=== PATIENT | male | born 1940 | race African-American/Black ===

== ENCOUNTER 2018-02-02 10:12 | Observation (INO) | payer MEDICARE ==
[2018-02-02 11:01] LABS: Bilirubin Negative (Negative); Blood, Urine Negative (Negative); Glucose, Urine (Dipstick) Negative (Negative); Leukocyte Negative (Negative); Nitrite Negative (Negative); Protein, Urine (Dipstick) Negative (Neg-Trace); Urobilinogen 0.2 mg/dL (0.2-1.0); pH, Urine 7.5 (5.0-9.0)
[2018-02-02 11:03] LABS: Clarity Clear (Clear)
[2018-02-02 11:34] LABS: #Basophils 0.1 thou/uL (0.0-0.2); #Eosinphils 0.1 thou/uL (0.0-0.7); #Lymphocytes 1.9 thou/uL (1.20-3.40); #Monocytes 0.7 thou/uL (0.11-0.59); #Neutrophils 10.4 thou/uL (1.40-6.50); %Basophils 0.4 % (0.0-1.0); %Eosinophils 0.6 % (0.0-10.0); %Lymphocytes 14.3 % (21.0-51.0); %Monocytes 5.5 % (0.0-10.0); %Neutrophils 79.2 % (42.0-75.0); Hemoglobin 9.3 g/dL (14.0-18.0); Mean Corpuscular HGB CONC 31.2 g/dL (32.0-36.0); Mean Corpuscular Hemoglobin 24.7 pg (27.0-31.0); Mean Corpuscular Volume 79.1 fL (78.0-98.0); Platelet Count 786 thou/uL (130-400); RBC Distribution Width 17.2 % (11.5-14.5); Red Blood Cell (RBC) Count 3.77 mill/uL (4.70-6.10); White Blood Cell (WBC) Count 13.1 thou/uL (4.8-10.8)
[2018-02-02 11:41] LABS: INR-International Normal Ratio 1.2; PTT 34.1 SEC (22.9-36.1)
[2018-02-02 11:57] LABS: ALT (SGPT) 36 U/L (8-55); AST (SGOT) 27 U/L (5-34); Albumin 4.2 g/dL (3.4-4.8); Alkaline Phosphatase 223 U/L (40-150); Anion Gap 13 mmol/L (10-20); BUN (Urea Nitrogen) 25 mg/dL (8.4-25.7); Bilirubin, Total 0.3 mg/dL (0.2-1.2); Calc. Creatinine Clearance 0 mL/min (70-130); Carbon Dioxide 27 mmol/L (23-31); Chloride 101 mmol/L (98-107); Estimated GFR-MDRD 69; Glucose 118 mg/dL (83-110); Potassium 4.4 mmol/L (3.5-5.1); Protein, Total 8.2 g/dL (5.8-8.1); Sodium 137 mmol/L (136-145)
[2018-02-02 12:03] LABS: CKMB 0.7 ng/mL (0-6.6); Troponin I Less than 0.010 ng/mL (< 0.028)
[2018-02-02] MEDS ORDERED: Ondansetron PF 4 MG/2 ML Vial ONE (12:16)
[2018-02-02] MEDS ORDERED: Morphine 2 MG/ML SYRINGE ONE (12:17)
--- NOTE | 2018-02-02 13:41 | RAD ---
PORTABLE CHEST 1 VIEW: Date: 02/02/18 Time: 1059 hours HISTORY: Abdominal pain with bleeding ulcers. FINDINGS: Comparison made with exam of 06/17/06. The heart size is borderline. The aorta is tortuous. The lungs are expanded without focal areas of co nsolidation, pneumothorax, alisha pulmonary edema, or pleural effusions. IMPRESSION: No radiographic evidence of acute cardiopulmonary process. POS: [facility]
[2018-02-02] MEDS ORDERED: Pantoprazole 40 MG VIAL ONE (14:57)
[2018-02-02] MEDS ORDERED: Ondansetron PF 4 MG/2 ML Vial IVP PRN (16:28)
[2018-02-02] MEDS ORDERED: Ondansetron ODT 4 MG TAB SL PRN (16:28)
[2018-02-02] MEDS ORDERED: Acetaminophen 325 MG TAB PO PRN ×2 (16:28→17:20)
[2018-02-02] MEDS ORDERED: Sodium Chloride 0.9% 1,000 ML IV SCH (16:28)
[2018-02-02] MEDS ORDERED: Guaifenesin DM 100-10/5 ML UDCUP PO PRN (17:20)
[2018-02-02] MEDS: Sodium Chloride 0.9% 1,000 ML IV SCH (19:00)
[2018-02-03 04:39] LABS: #Basophils 0.1 thou/uL (0.0-0.2); #Eosinphils 0.2 thou/uL (0.0-0.7); #Lymphocytes 1.9 thou/uL (1.20-3.40); #Monocytes 0.7 thou/uL (0.11-0.59); #Neutrophils 7.9 thou/uL (1.40-6.50); %Basophils 0.6 % (0.0-1.0); %Eosinophils 1.8 % (0.0-10.0); %Lymphocytes 17.4 % (21.0-51.0); %Monocytes 6.8 % (0.0-10.0); %Neutrophils 73.4 % (42.0-75.0); Hemoglobin 7.2 g/dL (14.0-18.0); Mean Corpuscular HGB CONC 30.8 g/dL (32.0-36.0); Mean Corpuscular Hemoglobin 24.5 pg (27.0-31.0); Mean Corpuscular Volume 79.4 fL (78.0-98.0); Mean Platelet Volume 6.6 fL (7.4-10.4); Platelet Count 594 thou/uL (130-400); RBC Distribution Width 17.1 % (11.5-14.5); Red Blood Cell (RBC) Count 2.94 mill/uL (4.70-6.10); White Blood Cell (WBC) Count 10.8 thou/uL (4.8-10.8)
[2018-02-03 04:47] LABS: Anion Gap 12 mmol/L (10-20); BUN (Urea Nitrogen) 19 mg/dL (8.4-25.7); Calc. Creatinine Clearance 58 mL/min (70-130); Calcium 8.9 mg/dL (7.8-10.44); Carbon Dioxide 26 mmol/L (23-31); Chloride 104 mmol/L (98-107); Estimated GFR-MDRD 71; Glucose 106 mg/dL (83-110); Potassium 4.7 mmol/L (3.5-5.1); Sodium 137 mmol/L (136-145)
[2018-02-03 05:01] VITALS: BMI 26.9
--- NOTE | 2018-02-03 07:40 | CON ---
GI INPATIENT CONSULTATION NOTE DATE OF SERVICE: 02/02/2018 REQUESTING PHYSICIAN: Dr. Montiel. REASON FOR CONSULTATION: Hematemesis. HISTORY OF PRESENT ILLNESS: Govind Zamarripa is a very pleasant 77-year-old -[place] gentleman . He was recently seen in the outpatient setting by my colleague, Dr. Ghanshyam Marquez in consultation f or iron deficiency anemia and some dysphagia symptoms. Dr. Marquez had planned on outpatient endoscopy . Mr. Zamarripa actually ended up at the [facility] and was briefly hospitalized for hemateme sis just within the past week. He underwent EGD on 01/26/2018 and this demonstrated a 6 x 2 cm ulcer extending from the gastric antrum to the gastric body along the greater curvature of the stomach. T his had an appearance suspicious for possible neoplasm. He had a CT scan that same date of the abdom en and pelvis and this demonstrated innumerable liver lesions consistent with metastatic disease as w ell as regional lymphadenopathy including enlarged lymph nodes in the gastrohepatic, peripancreatic, and periaortic lymph nodes. The patient was discharged from the hospital while pathology was pending . Pathology did come back consistent with invasive poorly differentiated carcinoma. Evidently, [facility] would not accept the patient's insurance and the patient had not lined up any ot her oncology evaluation yet. Then, earlier today, he had another episode of small volume hematemesis . He says this was quite a small amount, but it was bright red blood. He is not having a lot of eduardo sea or abdominal pain, though he has remained hemodynamically stable. He presented to the emergency department again. His hemoglobin was found to be 9.3 and I note this is essentially stable from his recent hospitalization, in which it was 8.7. He has no other complaints at this time. PAST MEDICAL HISTORY: Iron deficiency anemia, hyperlipidemia, kidney stones status post lithotripsy, appendectomy, BPH, gastric carcinoma, presenting as malignant ulcer, metastatic to the liver, diagno sed within the past week at [facility]. ALLERGIES: No known drug allergies. OUTPATIENT MEDICATIONS: Naproxen b.i.d. FAMILY HISTORY: Negative for known gastrointestinal malignancy. SOCIAL HISTORY: No smoking, alcohol, or drug use. PHYSICAL EXAMINATION: VITAL SIGNS: Temperature 98.3, pulse 63, blood pressure 155/72, 100% oxygen saturation on room air. GENERAL: A 77-year-old -[place] man sitting up in bed comfortably in no distress. MENTAL: Alert and fully oriented, pleasant, conversational. SKIN: No jaundice, no rash visible or palpable. EYES: No scleral icterus. Extraocular movements intact. ENT: Mucous membranes moist, no oral lesions. LYMPH: No submandibular or supraclavicular lymphadenopathy. THYROID: Nontender to palpation. HEART: Regular rate and rhythm. LUNGS: Clear to auscultation bilaterally. ABDOMEN: Flat, bowel sounds present, soft, some tenderness to palpation in the epigastrium, but no g uarding or rebound tenderness. EXTREMITIES: No peripheral edema. VESSELS: Radial pulses 2+ bilaterally. NEUROLOGICAL: Cranial nerves II-XII intact bilaterally. No focal deficits. LABORATORY STUDIES: Hemoglobin 9.3, WBC 13.1, platelets 786. INR 1.2. Sodium 137, potassium 4.4, B UN 25, creatinine 1.23, alkaline phosphatase 223, AST 27, ALT 36, total bilirubin 0.3. Troponin nega tive. Albumin 4.2. Urinalysis negative. IMAGING STUDIES: Chest x-ray here today shows no acute processes. CT of the abdomen and pelvis from 01/25/2018 was performed at [facility]. I reviewed that report. This demonstrated innumerable liver lesions consistent with metastatic disease as well as regional lymphadenopathy including enlar ged lymph nodes in the gastrohepatic, peripancreatic, and periaortic areas. ASSESSMENT AND PLAN: 1. Invasive gastric carcinoma, presenting as malignant gastric ulcer, metastatic to the liver, diagn osed last week at [facility]. 2. Hematemesis, recurrent, small volume. 3. Chronic anemia, stable. With regard to the repeat episode of hematemesis, this is undoubtedly co carlita from his malignant gastric ulcer. On the other hand, this appeared to have been small volume. His hemoglobin remains at baseline. Bleeding from gastric malignancy is notoriously difficult to ann marie l with endoscopically, and I really do not see any indication to repeat EGD at this time. I do think NSAIDs should be avoided and he does need to be on a daily proton pump inhibitor, but we will not pl an for any repeat EGD. 4. Hematemesis. 5. Chronic anemia, stable. The patient does need oncology evaluation. The patient's family is open to seeing an oncologist here, though they may want to go to [facility] as well. I see that Oncolog y consultation has already been requested. Thank you for the consultation. Please call back anytime with questions or concerns.
--- NOTE | 2018-02-03 07:40 | HP ---
REASON FOR ADMISSION: Hematemesis. HISTORY OF PRESENT ILLNESS: The patient gives history of vomiting blood yesterday around 20-30 mL and he had another episode this morning. Patient states he has had a complete workup done at [facility] including upper endoscopy and biopsies recently. He did not know the results. He currently has abdominal pain in the epigastric area. It is 5/10 in intensity with no radiation. No complaints of chest pain, palpitation, PND or orthopnea. No fever. The patient has had 1 episode of melena 2 weeks back. He walks by himself without any assistive devices and lives alone. PAST MEDICAL HISTORY: Just received records from [facility], where the patient had upper endoscopy done on the by Dr. Berhane Nino, which shows esophagus had Schatzki's ring. Stomach had a giant ulcer along the lesser curvature from body to the antrum with a midpoint at the incisura; it was 5 x 2 cm. Biopsies were taken from this area. The patient had a CT of the abdomen and pelvis done, which showed innumerable hypodense lesions throughout the liver suspicious for metastatic disease, largest lesion was 3.1 cm within the left hepatic lobe. The patient also had enlarged gastrohepatic and peripancreatic nodes with the largest one measuring 18 mm in short axis. There are also a few mildly enlarged periaortic nodes as well. Histopathology reveals poorly differentiated carcinoma of the stomach ulcer biopsy. HER2/doron stains were pending per the report, recurrent GI bleed due to malignancy, anemia due to malignancy described above, GERD, dyslipidemia, benign prostatic hypertrophy. CURRENT MEDICATIONS: Gabapentin 300 mg p.o. 3 times daily, Dryden p.r.n. for pain, omeprazole 20 mg p.o. daily, pravastatin 40 mg p.o. at bedtime, Flomax 0.4 p.o. daily, tizanidine p.r.n., type 2 diabetes mellitus, on diet control. PERSONAL HISTORY: Does not abuse alcohol or drugs. Quit smoking 30 years ago, smoked one pack a day for 3-4 years or so. FAMILY HISTORY: Mother at the age of 103 years. Father had cancer, which is unknown at the age of 70 years and is one of 13 siblings, 4 of his brothers had cancers, one had stomach cancer, a second brother had lung cancer and was a smoker. A third brother had liver metastasis from unknown cancer and the fourth brother had cancer, which is unknown to the patient. REVIEW OF SYSTEMS: The following complete review of systems was negative, unless otherwise mentioned in the HPI or below: Constitutional: Weight loss or gain, ability to conduct usual activities. Skin: Rash, itching. Eyes: Double vision, pain. ENT/Mouth: Nose bleeding, neck stiffness, pain, tenderness. Cardiovascular: Palpitations, dyspnea on exertion, orthopnea. Respiratory: Shortness of breath, wheezing, cough, hemoptysis, fever or night sweats. Gastrointestinal: Poor appetite, abdominal pain, heartburn, nausea, vomiting, constipation, or diarrhea. Genitourinary: Urgency, frequency, dysuria, nocturia. Musculoskeletal: Pain, swelling. Neurologic/Psychiatric: Anxiety, depression. Allergy/Immunologic: Skin rash, bleeding tendency. PHYSICAL EXAMINATION: GENERAL: The patient is a 77-year-old male who is currently not in any acute distress. VITAL SIGNS: Blood pressure 150/70, pulse 64 per minute, respiratory rate 14 per minute, temperature 98.3 degrees Fahrenheit, saturating 100% on room air. NECK: Supple, no elevated JVD. HEENT: Eyes, extraocular muscles intact. Pupils reacting to light. Oral cavity mucous membranes are moist. No exudates or congestion. CARDIOVASCULAR: S1, S2 heard. Heart regular rhythm. RESPIRATORY: Air entry 1+ bilateral. No rales or rhonchi. ABDOMEN: Soft, bowel sounds heard. Mild tenderness in the epigastric area. No rebound or guarding. EXTREMITIES: No peripheral edema or calf tenderness. VASCULAR SYSTEM: Peripheral pulses 1+ bilateral. No ischemic ulcerations or gangrene. CENTRAL NERVOUS SYSTEM: No gross focal deficits noted. Patient is alert and oriented well. PSYCHIATRIC: The patient's mood is euthymic. No hallucinations or delusions. LABORATORY DATA: Chest x-ray done shows no acute abnormalities. Serum glucose 118. Electrolytes stable. BUN 25, creatinine 1.23, alkaline phosphatase is 223 , total bilirubin 0.3, troponin I is negative. Albumin is 4.2. PT/INR 15 and 1.2, PTT 34. White count of 13, H&H 9 and 28, platelet count 786, MCV 79 with 79% neutrophils. CLINICAL IMPRESSION AND PLAN: The patient will be under observation on medical floor for 2 episodes of hematemesis with known history of adenocarcinoma of stomach, which is poorly differentiated with multiple mets to liver and surrounding lymph nodes. We will repeat H&H in the morning. Apparently the patient's insurance Medicare with [employer] is out of network at [facility] and family is trying to find an oncologist. They would like to discuss their options. We will consult Dr. Ortiz who is global transportation manager for Oncology. Dr. Vinny Rodriguez has seen patient in the room. I have discussed his histopathology and endoscopic findings and CAT scan findings with Dr. Casillas. His overall prognosis is poor with multiple mets and invasive adenocarcinoma of stomach. Code status was discussed with patient and he is a FULL CODE for now. [facility]
[2018-02-03] MEDS: Sodium Chloride 0.9% 1,000 ML IV SCH (07:50)
--- NOTE | 2018-02-03 10:29 | PDOC.PN ---
- Subjective Encounter Start Date: 02/03/18 Encounter Start Time: 09:15 Subjective: no further hematemesis or bleeding per rectum -: no chest pain or epigastric pain now - Objective Resuscitation Status: Resuscitation Status FULL:Full Resuscitation MAR Reviewed: Yes Vital Signs & Weight: Vital Signs (12 hours) Temp Pulse Resp BP BP BP Pulse Ox 02/03/18 09:05 98.2 F 64 131/61 97 02/03/18 08:50 98.2 F 14 100/55 L 96 02/03/18 07:34 98.1 F 62 20 96/55 L 98 02/03/18 04:20 98.2 F 67 17 106/60 97 Weight Weight 182 lb 11.2 oz Most Recent Monitor Data Heart Rate from ECG 66 I&O: 02/02/18 02/03/18 02/04/18 06:59 06:59 06:59 Intake Total 360 0 Output Total 300 Balance 60 0 Result Diagrams: 02/03/18 04:08 02/03/18 04:08 Phys Exam - Physical Examination HEENT: PERRLA, moist MMs Neck: no JVD, supple Respiratory: no wheezing, no rales Cardiovascular: RRR, no significant murmur Gastrointestinal: soft, non-tender, no distention, positive bowel sounds Musculoskeletal: no edema, pulses present Neurological: non-focal, moves all 4 limbs Psychiatric: normal affect, A&O x 3 Dx/Plan (1) Hematemesis Code(s): K92.0 - HEMATEMESIS Status: Resolved (2) Adenocarcinoma of stomach Code(s): C16.9 - MALIGNANT NEOPLASM OF STOMACH, UNSPECIFIED Status: Acute Comment: poorly diff adenocarcinoma with mets to liver and surrounding lymph nodes (3) Acute blood loss anemia Code(s): D62 - ACUTE POSTHEMORRHAGIC ANEMIA Status: Acute (4) BPH (benign prostatic hyperplasia) Code(s): N40.0 - BENIGN PROSTATIC HYPERPLASIA WITHOUT LOWER URINRY TRACT SYMP Status: Chronic Qualifiers: Lower urinary tract symptom presence: symptoms absent Qualified Code(s): N40.0 - Benign prostatic hyperplasia without lower urinary tract symptoms - Plan is receiving 1 unit prbc now -: onc opinion, Her2/doron is pending on path report -: may dc home after onc consultation to f/u as outpt -: d/w family and patient about his current diagnosis -: hemostable, prognosis poor * . Review of Systems - Medications/Allergies Allergies/Adverse Reactions: Allergies Allergy/AdvReac Type Severity Reaction Status Date / Time No Known Allergies Allergy Verified 02/02/18 16:02 Medications: Current Medications Acetaminophen (Tylenol) 650 mg PO Q4H PRN PRN Reason: Headache/Fever/Mild Pain (1-3) Last Admin: 02/03/18 07:49 Dose: 650 mg Guaifenesin/Dextromethorphan (Robitussin Dm) 15 ml PO Q4H PRN PRN Reason: Cough Sodium Chloride (Normal Saline 0.9%) 1,000 mls @ 70 mls/hr IV [id number] Stop: 02/03/18 22:34 Last Admin: 02/03/18 07:50 Dose: 1,000 mls Pantoprazole Sodium (Protonix) 40 mg PO DAILY [facility] Last Admin: 02/03/18 07:50 Dose: 40 mg Sodium Chloride (Flush - Normal Saline) 10 ml IVF Q12HR [facility] Last Admin: 02/03/18 07:55 Dose: 10 ml Sodium Chloride (Flush - Normal Saline) 10 ml IVF PRN PRN PRN Reason: Saline Flush
[2018-02-03 11:36] VITALS: BP 112/66; TEMP 98.4
--- NOTE | 2018-02-03 16:58 | PRG ---
DATE OF SERVICE: 02/03/2018 GI INPATIENT DAILY PROGRESS NOTE SUBJECTIVE: Mr. Zamarripa is feeling okay. No abdominal pain, no further vomiting. He has not had a ny bowel movements since arrival here. His hemoglobin did decline from yesterday, going from 9.3-7.2 . He has just finished getting 1 unit RBC transfusion. He has remained hemodynamically stable and t hey are awaiting Oncology evaluation. OBJECTIVE: VITAL SIGNS: Temperature 98.4, pulse 69, blood pressure 112/66, 98% oxygen saturation on room air. GENERAL: No acute distress. HEART: Regular rate and rhythm. LUNGS: Clear to auscultation bilaterally. ABDOMEN: Soft and nontender to palpation. EXTREMITIES: No peripheral edema. LABORATORY STUDIES: Hemoglobin 7.2, WBC 10.8, platelets 594. INR 1.2. Sodium 137, potassium 4.7, B UN only 19, creatinine 1.19. ASSESSMENT AND PLAN: 1. Gastric carcinoma, metastatic to liver and regional lymph nodes. 2. Hematemesis, undoubtedly from his malignant gastric ulcer. 3. Anemia of gastrointestinal blood loss. Still no plan for any upper endoscopy, as the utility of endoscopic therapy for malignant ulcer bleeding is quite low. The patient should remain on acid supp ression. He may just end up needing periodic blood transfusions at least until cancer treatment plan s and dispositions are worked out. Still awaiting Oncology evaluation. Please call back anytime with questions or concerns.
--- NOTE | 2018-02-03 21:18 | CON ---
DATE OF CONSULTATION: 02/03/2018 REASON FOR CONSULTATION: Gastric adenocarcinoma. HISTORY OF PRESENT ILLNESS: Mr. Zamarripa is a pleasant 77-year-old -[place] gentleman who kathleen d a recent GI workup at [facility] for hemoptysis, found a 6 x 2 cm ulcer in the gastri c antrum along the greater curvature of the stomach. Biopsy confirmed gastric adenocarcinoma. Appar ently, patient had a CT scan of the abdomen and pelvis which showed innumerable liver lesions consist ent with metastatic disease. The patient presented to our emergency room for hemoptysis and was foun d to have hemoglobin of 7.2. He was transfused 1 unit of packed RBCs. We were asked to see the mirlande ent regarding possible treatment options. The patient states he has been having mid epigastric pain for approximately 2 months, but began to have hemoptysis 2 weeks ago. He states he has had approxima tely 5 pounds of weight loss. He does have abdominal cramping after eating and dark stools. No fami ly history of gastric cancer. Denies any alcohol or tobacco use. PAST MEDICAL HISTORY: 1. Hyperlipidemia. 2. Kidney stones. 3. Benign prostatic hypertrophy. 4. Iron deficient anemia. 5. Gastric adenocarcinoma diagnosed at [facility] last week. PAST SURGICAL HISTORY: 1. Appendectomy. 2. Lithotripsy. 3. EGD and colonoscopy. ALLERGIES: No known drug allergies. HOME MEDICATION: Naproxen p.r.n. FAMILY HISTORY: No GI malignancy. SOCIAL HISTORY: Single, lives here alone, one daughter in [place]. No alcohol, tobacco or illicit d rug use. REVIEW OF SYSTEMS: Twelve point review of systems is negative except for noted in HPI. PHYSICAL EXAMINATION: VITAL SIGNS: Temperature is 98.4, pulse is 69, respiratory rate 16, BP is 112/66. He is 98% on room air. GENERAL: A well-developed, well-nourished male in no acute distress. HEENT: Normocephalic, atraumatic. Pupils are equal and reactive to light. He has poor dentition. NECK: Supple. CARDIOVASCULAR: Regular rate and rhythm. LUNGS: Clear. ABDOMEN: Soft, nontender, bowel sounds are positive. EXTREMITIES: No clubbing, cyanosis or edema. SKIN: No rash. HEMATOLOGIC: No petechia or purpura. NEUROLOGIC: Nonfocal. PSYCHIATRIC: The patient is alert and oriented and appropriate. PERTINENT LABORATORY DATA AND IMAGING DATA: Current WBCs are 10.8, hemoglobin 7.2, hematocrit 23.3, platelet count 594,000, 74% neutrophils, 17% lymphocytes. PT is 15, INR is 1.2, PTT 34.1. Sodium is 137, potassium 4.7, chloride 104, CO2 is 26, BUN 19, creatinine 1.19, calcium 8.9, total bilirubin i s 0.3, AST is 27, ALT is 36, alkaline phosphatase is 223. Troponin is negative. Serum total protein is 8.2, albumin 4.2, globulin 4.0. Chest x-ray showed no acute process. ASSESSMENT: 1. Metastatic gastric adenocarcinoma based on the medical records provided by daughter from [facility] last week. 2. Hemoptysis. DISCUSSION: Review of patient's medical records show an adenocarcinoma. HER-2 is currently pending . The patient needs follow up in the outpatient setting where he would need chemotherapy. Our clini c information was provided and he was asked to call next week to set up an appointment. In socorroio n with the daughter, she is considering moving him to [place] where she can take care of him. I enco urage this decision as this is a difficult chemo regimen and he will need help. Encouraged her to fi nd an oncologist within the next week. He also needs periodic monitoring of his CBC given his hemopt ysis and instructed to avoid NSAIDs and to take Tylenol for pain. Thank you for the consult. We will be happy to follow him in the outpatient setting.
--- NOTE | 2018-02-04 00:07 | DIS ---
DATE OF ADMISSION: 02/02/2018 DATE OF DISCHARGE: 02/03/2018 DISCHARGE DISPOSITION: To home. PRIMARY DISCHARGE DIAGNOSES: Hematemesis secondary to adenocarcinoma of the stomach, acute blood loss anemia, benign prostatic hypertrophy. PROCEDURES DONE DURING HOSPITALIZATION: Chest x-ray done showed no acute cardiopulmonary abnormality. H&H 7.2 and 23 this morning prior to 1 unit of transfusion. BUN and creatinine 19 and 1.1. Albumin is 4.2. INPATIENT CONSULTS: Dr. Michael Casillas for Gastroenterology, Dr. Ortiz for Oncology. DISCHARGE MEDICATION: Protonix 40 mg p.o. daily. ALLERGIES: No known drug allergies. DISCHARGE PLAN: The patient is to follow up with Dr. Ortiz as advised and primary care physician in 1 week. BRIEF COURSE DURING HOSPITALIZATION: The patient initially came to ER with complaints of vomiting blood 2 times, which were small amounts of 20-30 mL. He has had a complete workup done recently at [facility] including upper endoscopy and biopsies. The biopsies revealed poorly differentiated adenocarcinoma. The patient also had a CAT scan done at [facility], which showed multiple mets in the liver along with periaortic and gastrohepatic nodes. In view of this, the patient was placed under observation on medical floor. His initial hemoglobin was 9 and as it dropped to 7.2 with history of known bleeding adenocarcinoma, the patient was given a unit of packed cell. The patient and family told me that they are out of network at [facility] due to their insurance and Oncology consultation with Dr. Ortiz will be requested here. He can be discharged home once cleared by Oncology. He is otherwise hemodynamically stable. His prognosis is guarded. Please see a face to face documentation on [employer] for the day of discharge. MTDD
--- NOTE | 2018-02-04 23:08 | EKG ---
Test Reason : Blood Pressure : / mmHG Vent. Rate : 071 BPM Atrial Rate : 071 BPM P-R Int : 154 ms QRS Dur : 082 ms QT Int : 394 ms P-R-T Axes : 040 008 030 degrees QTc Int : 428 ms Sinus rhythm with Premature atrial complexes Possible Inferior infarct , age undetermined Abnormal ECG Confirmed by LUIS RICKETTS ([id number]), movie editor ERIC BEAL ([id number]) on 02/04/2018 11:07:26 PM Referred By: Confirmed By:LUIS RICKETTS
== END 2018-02-03 17:24 | disposition home or self-care (01) ==
LOC: ERS 10:12 → 2SW 14:19
PROVIDERS: ADMIT Internal Medicine; ATTEND Internal Medicine
DX: C16.9 Malignant neoplasm of stomach, unspecified (principal); K92.0 Hematemesis; D62 Acute posthemorrhagic anemia; N40.0 Benign prostatic hyperplasia without lower urinary tract symptoms; E78.5 Hyperlipidemia, unspecified; C77.9 Secondary and unspecified malignant neoplasm of lymph node, unspecified; C78.7 Secondary malignant neoplasm of liver and intrahepatic bile duct; E11.9 Type 2 diabetes mellitus without complications; K21.9 Gastro-esophageal reflux disease without esophagitis; Z87.891 Personal history of nicotine dependence; Z79.899 Other long term (current) drug therapy
CPT/HCPCS: 36430; 71045; 80048; 80053; 81003; 82553; 84484; 85025 ×2; 85610; 85730; 86850; 86900; 86901; 86920; 93005; 96361 ×3; 96374; 96375; 99285; G0378 ×2; P9016; 36415; C9113; J2270; J2405